=== PATIENT | male | born 1965 | race Caucasian/White ===

== ENCOUNTER → 2020-12-03 | Day surgery (SDC) | payer BC ==
[~2020-12-03] MED LIST: LEVOTHYROXINE112 MC1 PO; LISINOPRIL20 MG PO
== END | disposition home or self-care (01) ==
LOC: OR 07:09
DX: C61 Malignant neoplasm of prostate (principal); I10 Essential (primary) hypertension; E78.00 Pure hypercholesterolemia, unspecified; E03.9 Hypothyroidism, unspecified; Z20.822 Contact with and (suspected) exposure to COVID-19; Z87.891 Personal history of nicotine dependence; D63.0 Anemia in neoplastic disease
CPT/HCPCS: J7040; J7120